=== PATIENT | female | born 1985 | race Caucasian/White ===

== ENCOUNTER 2022-11-12 01:04 | Day surgery (SDC) | payer OTHER, SELFPAY ==
[2022-10-28 12:39] VITALS: BMI 26.2
--- NOTE | 2022-10-28 12:49 | PC.NURSE ---
Report to the Outpatient Waiting Room, entrance under the green pavilion located off [facility], at time 0630 on date 11/12/22. Planned Procedure Time: 0830. Time changes happen often and if your time is changed the preop area will call you the afternoon before. - You and your visitor will be asked to self-screen and do not enter if you have any COVID symptoms. - Only one visitor is requested with a max of two and NO children visitors are allowed at this time. - The patient visitor may be requested to leave or wait in car when not with patient due to distancing restrictions. - A mask is optional within the hospital at this time. Patients may have clear liquids (water, carbonated beverages, clear teas, apple juice) until 3 hours prior to surgery with a maximum of 20 ounces. 0530 - No food from midnight until time of surgery - Infants may have breast milk until 4 hours before surgery, infant formula 6 hours prior to surgery. - Children will be allowed to drink immediately following surgery. If applicable, please bring a bottle or sippy cup to assist with drinking. Juice, water, soda, and popsicles are readily available. For infants on formula, please bring formula the day of surgery. Pacifiers are allowed. Take the following medications with a SIP of water the morning of surgery: levothyroxine (all other meds taken at night) DO NOT STOP ANY OF YOUR OTHER PRESCRIPTION MEDICATIONS PRIOR TO SURGERY ?EXCEPT THE FOLLOWING Medications to discontinue per physician vitamin D, vitamin Date to take last dose 11/09/22 Please no make-up, nail palestinian, hairspray, perfume, deodorant, or body powder the day of surgery. No jewelry (including any body piercings) or valuables the day of surgery, leave them at home. Please take a shower or bath the night before, or the morning of, surgery with an antibacterial soap. Wear comfortable, loose fitting clothing. Children are encouraged to wear pajamas. - Jewelry must be removed prior to entering the operating room. Rings and piercings that are not removed may be cut off. - The hospital will not accept responsibility for valuables. - Please leave all valuables, including medications, at home the day of surgery. If you are going home after surgery, a licensed parcel post truck driver must drive you home. - NO public transportation without another adult if you receive anesthesia. - We recommend that an adult stay with you for 24 hours following discharge. - We also recommend that you do not drive, make important decision, drink alcoholic beverages, or take any drugs that were not prescribed by your health care provider for at least 24 hours after your discharge time. For Pediatric surgeries, we recommend two adults accompany the child home. Follow any additional instructions given to you from your surgeon. If you or anyone in your household have experienced Covid symptoms in the past week, please notify your surgeon or the nurse liaison at the phone number below for possible testing. Telephone instructions given to Yolanda Av and asked if any additional questions and then verbalized understanding. Patient advised to call surgeon office or pre surgery nurse liaison [phone] if any additional questions.
[2022-11-12 06:26] VITALS: BP 119/84; PULSE 72; RESP 16; TEMP 36.3; O2SAT 100
--- NOTE | 2022-11-12 06:51 | WPDANESEPPF ---
Anes - Initial Pre Proc Eval Procedure: Operation Date: 11/12/22 08:30 Proposed Procedures p Excision of Two Skin Scalp Cysts - Angel Pa MD Date/Time: 11/12/22 06:51 Surgeon: Angel Pa MD Pre Op Diagnosis: Scalp Cysts Patient Data Age: 37 Gender: F Height: 1.78 m Weight: 82.7 kg Allergies Allergy/AdvReac Type Severity Reaction Status Date / Time No Known Allergies Allergy Verified 10/28/22 12:35 Home Medications Medication Instructions Recorded Confirmed Type levothyroxine 112 mcg capsule 112 mcg PO DAILY 10/20/22 10/28/22 History prenat.vits,kevin,evc-stbf-qphik 1 tablet PO HS 10/20/22 10/28/22 History cetirizine 10 mg tablet (Zyrtec) 10 mg PO HS 10/28/22 10/28/22 History desogestrel 0.15 mg-ethinyl 1 tablet PO HS 10/28/22 10/28/22 History estradiol 0.03 mg tablet (Isibloom) ergocalciferol (vitamin D2) 1,000 2,000 unit PO HS 10/28/22 10/28/22 History unit capsule Patient hx anesthesia problems: none Family hx anesthesia problems: none Results Review: All pre-operative results and documents have been reviewed as part of the pre-operative evaluation. PENDING SALE TO [facility] Past Medical History Medical History H/O Kvng thyroiditis Surgical History Surgical History H/O: Hx of tubal ligation S/P LEEP (loop electrosurgical excision procedure) Family History Family History Other Cerebrovascular accident Cervical cancer Diabetes mellitus Hypertension Social History Social History Smoking status: Never smoker Alcohol intake: current Alcohol use details: very rarely Substance use: never Living arrangements: with family Spiritual care concerns: No Anes - Eval Final PreProcedure Day of Procedure 11/12/22 06:51 Patient weight: overweight Heart: regular rate and rhythm Lungs: clear to auscultation Airway: Mallampati scale class II and special considerations poor dentition Last oral intake: >/= 8 hours ASA classification: II Emergent: no Anesthetic plan: proceed Anesthesia type and monitoring: general GIVS and standard monitoring Results Review: All pre-operative results and documents have been reviewed as part of the pre-operative evaluation. Informed Consent: The patient's anesthetic plan and its attendant risks and benefits were discussed with the patient/family/POA. Questions were solicited and answers provided to the satisfaction of the patient/family/POA.
--- NOTE | 2022-11-12 07:22 | WPDHPUPDATE1 ---
History and Physical Update Update Date/Time: 11/12/22 07:22 History and Physical has been reviewed, including an updated exam of the patient. There are NO changes in the patient's condition. Risks, benefits, and alternatives have been discussed and questions answered. Patient agrees to proceed with procedure.
[2022-11-12] MEDS: LACTATED RINGERS 1,000 ML 30 ML IV CONT (07:24)
[2022-11-12] MEDS: ceFAZolin 2 GM/D5W 50 ML 2 GM/50 ML BAG IVPB (08:58)
[2022-11-12] MEDS: BUPivacaine HCL 0.5% 10 ML AMP 30 ML INFILTRATE (09:29)
--- NOTE | 2022-11-12 09:43 | W.PM.PROC2 ---
Procedure Note - Detailed Date of Procedure 11/12/22 Pre-op Diagnosis Scalp Cysts Post-op Diagnosis Same Procedure Performed Excision 1.5 cm left-sided scalp cyst, excision 2.7 cm right scalp cyst. Both cystic sized with 0 margin. Surgeon Angel Pa MD [employer] Operator Lori BURTA Anesthesia MAC and Local ( 0.5% Marcaine with epinephrine) Indications patient has 2 scalp cysts that have been getting larger and are sometimes painful. A smaller 1 is on the left parieto-occipital scalp. The right-sided cyst is more on the parietal scalp. She is taken to surgery now for excision Findings scalp cysts. Description of Procedure Patient was checked in the preoperative holding area. The area of each cyst was marked on the scalp. She was then taken to surgery. Anesthesia was introduced. We then turned our attention 1st to the left-sided scalp cyst. A small amount of hair was clipped per de away. The area of the cyst was exposed. Some hair was taped out of the surgical field as well. Prep and drape was carried out. An ellipse was drawn around the cyst. Local anesthetic was infiltrated in the area of the ellipse and all around the area to be excised. Incision was made and the ellipse was excised. We took care to dissect around the cyst but did not take any margin of normal tissue. We excised the cyst completely without rupturing it. The cyst measured 1.5 cm in greatest dimension. The overlying skin was attached to the cyst. The wound was made hemostatic with the cautery. It was closed with 3-0 nylon vertical mattress sutures. It was dressed with antibiotic ointment. We then turned the patient's head so that the right parietal area was exposed. Similarly, the cyst was found and some hair was clipped heard away. Hair was taped out of the way as well. Prep and drape was carried out. An ellipse was drawn around this larger cyst. Local was infiltrated over this area as well. Incision was made and the ellipse of skin was excised. We then carefully dissected around the cyst and took care not to rupture the cyst. A eventually we excised the cyst completely. Again no margin of normal tissue was taken with the cyst. I then measured the cyst and it was 2.7 cm in greatest dimension. Cautery was used to achieve hemostasis. This wound was also closed with 3-0 nylon vertical mattress sutures. Antibiotic ointment was placed. Both wounds were cleaned. The specimen was sent to Pathology in formalin. Sponge and needle counts were correctX2. Estimated Blood Loss -5 Drains No Packing No Pathology Yes ( Skin cysts of the left side and right side of the scalp) Complications No immediate complications Condition Stable Disposition Same day [facility] Billing Surgery - Charge Forward: Surgery Billing ( excision 2.7 cm skin cyst of the right parietal scalp; excision 1.5 cm skin cyst of the left parieto-occipital scalp. No margin for either cyst excision.)
[2022-11-12 09:54] VITALS: BP 116/70; PULSE 79; RESP 12; O2SAT 100
[2022-11-12 10:20] VITALS: BP 111/64; PULSE 99; RESP 18
[2022-11-12 10:40] VITALS: BP 119/80; PULSE 77; RESP 16
== END 2022-11-12 10:51 | disposition home or self-care (01) ==
PROVIDERS: PCP Emergency Medicine; Visit Provider Surgery
PROC: (CPT 11422; principal; 2022-11-12 08:30)
DX: L72.12 Trichodermal cyst (principal); E06.3 Autoimmune thyroiditis
CPT/HCPCS: 11422; 11423; 88305; A9270; J0690; J2250; J2405; J2704; J3010; J7120